=== PATIENT | female | born 1950 | race Caucasian/White ===

== ENCOUNTER → 2017-05-04 | Outpatient (CLI) | payer OTHER, MEDICARE ==
[~2017-05-04] MED LIST: ALL300 PO; CEPH500C2 PO; CHOL100010 PO; CMD5 PO; ENOX100I SQ; FLUO20CA35 PO; HYDR25TA4 PO; IMP/50 PO; METO50TA16 PO; MULT-506 PO; PANT1TAB48 PO; POTA10CA28 PO; PRAV20TA PO; SYN75 PO
== END | disposition home or self-care (01) ==
LOC: C.LABSPEC 17:16 → C.PATHSPEC 17:32
PROVIDERS: ATTEND Urology
DX: N20.0 Calculus of kidney (principal); R31.29 Other microscopic hematuria

== ENCOUNTER → 2017-05-27 | Outpatient (CLI) | payer OTHER, MEDICARE ==
[2017-05-27 10:16] LABS: BLOOD UREA NITROGEN 21 mg/dl (7-18); CREATININE 0.86 mg/dl (0.60-1.20)
== END | disposition home or self-care (01) ==
LOC: C.LAB 08:44
PROVIDERS: ATTEND Otolaryngology
DX: H90.41 Sensorineural hearing loss, unilateral, right ear, with unrestricted hearing on the contralateral side (principal)

== ENCOUNTER → 2017-06-01 | Outpatient (CLI) | payer OTHER, MEDICARE ==
[~2017-06-01] MED LIST changes: +GADAVIST IV PRN
--- NOTE | 2017-06-01 21:38 | DIAGNOSTIC IMAGING REPORT ---
MRI OF THE BRAIN AND IACS WITHOUT AND WITH IV CONTRAST CLINICAL HISTORY: Right-sided hearing loss. HISTORY OF ACOUSTIC NEUROMA. COMPARISON STUDY: 01/20/2015 TECHNIQUE: MRI of the brain was performed from the vertex to the skull base utilizing various T1 and T2 weighted sequences. Following the IV administration of 10 mL of Gadavist contrast, additional enhanced images were obtained. FINDINGS: Sagittal T1, axial diffusion, proton density and T2 weighted axial, coronal FLAIR, and pre and post axial T1-weighted images were acquired. These were supplemented with post gadolinium coronal T1 weighted images. There is a stable tiny focus of enhancement within the right internal auditory canal, likely representing a tiny acoustic neuroma. There is also a stable 4 mm extra-axial focus of enhancement abutting the dura at the level of the right cerebellar pontine angle. This may represent a small meningioma. There are no additional foci of pathologic enhancement. Axial diffusion-weighted images reveal no evidence of acute or subacute infarction. There is no evidence of ventricular dilatation. Proton density T2-weighted and FLAIR images reveal scattered foci of increased T2 signal within the white matter, likely on a small vessel basis. There are no abnormal flow voids. There is a focus of increased T2 signal within the right mastoid, likely inflammatory. IMPRESSION: 1. No significant change in the subtle focus of enhancement within the right internal auditory canal. This is suspicious for a tiny acoustic neuroma 2. Stable extra-axial enhancing dural based lesion at the level of the right cerebellar pontine angle, likely representing a tiny meningioma 3. No evidence of acute or subacute infarction. Electronically signed by: Tyron Kaye M.D. 06/01/2017 9:37 PM Dictated Date/Time: 06/01/2017 9:31 PM
== END | disposition home or self-care (01) ==
LOC: C.MRI 18:47
PROVIDERS: ATTEND Otolaryngology
DX: D33.3 Benign neoplasm of cranial nerves (principal)

== ENCOUNTER 2017-07-22 11:25 | Emergency (ER) | payer OTHER, MEDICARE ==
[~2017-07-22] VITALS: Ht 160 cm; Wt 101.8 kg
[~2017-07-22 11:25] MED LIST changes: -GADAVIST IV PRN; +PANT1TAB3 PO; -PANT1TAB48 PO
[2017-07-22 11:31] VITALS: Ht 160 cm; Wt 101.8 kg
[2017-07-22] MEDS ORDERED: FLUO40CA8 PO (12:03)
[2017-07-22] MEDS ORDERED: LOSA1TAB PO (12:06)
[2017-07-22] MEDS ORDERED: PRAV40TA2 PO (12:06)
[2017-07-22] MEDS ORDERED: ZNTT/150 PO (12:06)
[2017-07-22] MEDS ORDERED: POTA75TA PO (12:12)
[2017-07-22] MEDS ORDERED: VITA400C28 PO (12:12)
[2017-07-22] MEDS ORDERED: ASPI325T39 PO (12:12)
[2017-07-22] MEDS ORDERED: TURM1CAP4 PO (12:12)
--- NOTE | 2017-07-22 12:23 | EMERGENCY ROOM VISIT NOTE ---
History Report prepared by Veena: Oscar Gilbert Under the Supervision of: Dr. Humberto Pickard M.D. First contact with patient: 11:49 Chief Complaint: LEG PAIN,LEG INJURY Stated Complaint: PAIN IN RIGHT LEG History of Present Illness The patient is a 67 year old female who presents to the Emergency Room with complaints of constant bilateral leg pain beginning two days ago. She currently rates her discomfort a 3/10. The patient states her pain is currently behind her right knee and is no longer behind her left knee. She reports she has a history of DVTs and thinks she may have one. The patient notes she has on Coumadin three years ago. She states she has a history of right hip surgery and follows up with [facility]. Source of History: patient Onset: 2 days ago Position: leg (bilateral) Symptom Intensity: 3/10 Timing: constant Note: Denies: pain behind the left knee Review of Systems See HPI for pertinent positives & negatives. A total of 10 systems reviewed and were otherwise negative. Past Medical & Surgical Medical Problems: (1) Heart disease (2) HTN (hypertension) (3) Kidney stone (4) Stomach problems (5) Urinary problem Family History Cancer Diabetes mellitus Heart disease Hypertension Kidney disease Kidney stones Lung disease Social History Smoking Status: Never Smoker Alcohol Use: none Housing Status: lives with family Occupation Status: employed Current/Historical Medications Scheduled Allopurinol (Zyloprim *), 300 MG PO DAILY Aspirin (Aspirin Ec), 325 MG PO QAM Fluoxetine (Prozac), 40 MG PO HS Hydrochlorothiazide (Hctz), 25 MG PO DAILY Imipramine (Tofranil), 50 MG PO BID Levothyroxine Sodium (Levothyroxine Sodium), 75 MCG PO DAILY Losartan Potassium (Cozaar), 12.5 MG PO QAM Multivitamin (Multivitamin), 1 TAB PO DAILY Potassium (Potassium), Unknown Dose PO BID Pravastatin Sodium (Pravastatin Sodium), 1 TAB PO DAILY Ranitidine (Zantac), 1 TAB PO BID Turmeric (Curcuma Longa) (Turmeric), 1 CAP PO BID Vitamin E (Alph-E), 1 CAP PO BID Allergies Coded Allergies: Salicylates (Verified Allergy, Unknown, TAKES BABY ASA AT HOME, 07/22/17) Dipyridamole (Verified Adverse Reaction, Intermediate, MIGRAINES- TOLERATES ASPIRIN, 07/22/17) Thiopental (Verified Adverse Reaction, Intermediate, SEVERE NAUSEA/ VOMITING, 07/22/17) Metronidazole (Verified Adverse Reaction, Mild, NAUSEA, 07/22/17) Aspirin (Verified Adverse Reaction, Unknown, MIGRAINES, 07/22/17) Morphine (Verified Adverse Reaction, Unknown, NAUSEA/VOMITING PER PREOP H& P, 07/22/17) Physical Exam Vital Signs Date Time Temp Pulse Resp B/P (MAP) Pulse Ox O2 Delivery O2 Flow Rate FiO2 07/22/17 16:08 99 183/98 95 Room Air 07/22/17 15:33 86 154/88 100 Nebulizer 7.0 07/22/17 14:46 93 18 96 Room Air 07/22/17 14:36 86 07/22/17 14:35 86 20 150/91 100 Room Air 07/22/17 14:33 96 Room Air 07/22/17 13:03 36.5 84 18 152/91 96 Room Air 07/22/17 11:31 36.7 100 18 168/92 95 Room Air Physical Exam GENERAL: Patient is a healthy-appearing well-nourished 67 year old female. HEAD: Normocephalic atraumatic EYES: Ocular movements intact pupils equal and react to light OROPHARYNX mucous membranes are moist no exudates present no erythema or edema present NECK: Supple no nuchal rigidity CHEST: Good equal expansion LUNGS: Clear and equal to auscultation CARDIAC: Normal S1 and S2 ABDOMEN: Soft nontender no guarding BACK: No CVA tenderness EXTREMITIES: Normal muscle strength in all groups no clubbing cyanosis or edema. Pain posterior to the right knee and left knee. Good ROM of knee, ankle, and hip. Neurovascularly intact. NEURO: Patient is following commands and answering questions appropriately. Alert and oriented x3 Cranial Nerves 2-12 grossly intact Medical Decision & Procedures ER Provider Diagnostic Interpretation: Radiology results as stated below per my review and radiologist interpretation: BILATERAL LOWER EXTREMITY VENOUS DOPPLER HISTORY: Pt c/o b/l leg pain COMPARISON STUDY: None. FINDINGS: There is normal compressibility, flow, and augmentation within the bilateral lower extremity deep venous systems. A 1 cm cyst within the right popliteal fossa. IMPRESSION: No DVT within the right or left lower extremity. Electronically signed by: Scooby Weaver M.D. 07/22/2017 1:48 PM Dictated Date/Time: 07/22/2017 1:48 PM CHEST ONE VIEW PORTABLE HISTORY: Short of breath. COMPARISON: Chest 12/14/2013. FINDINGS: The lungs are clear. Cardiac silhouette is normal in size. No pleural effusions. No pneumothorax. IMPRESSION: No acute process. Electronically signed by: Scooby Weaver M.D. 07/22/2017 3:17 PM Dictated Date/Time: 07/22/2017 3:16 PM CHEST CTA for PULMONARY ARTERIES CT DOSE: 664.02 mGy.cm HISTORY: Short of breath. Cough. TECHNIQUE: Multiaxial CT images of the chest were performed following the intravenous administration of contrast to evaluate the pulmonary arteries. Maximal intensity projection images were also obtained. A dose lowering technique was utilized adhering to the principles of ALARA. COMPARISON STUDY: Chest CTA 12/14/2013. 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 The aorta is normal in caliber with no evidence for dissection. The heart is borderline enlarged. Respiratory motion artifact results in nondiagnostic evaluation of the majority of the bilateral lower lobe and right middle lobe segmental and subsegmental pulmonary arteries. The remaining pulmonary arteries are patent with no evidence for pulmonary embolus. No pleural or pericardial effusions. The visualized liver, spleen, and adrenal glands are unremarkable. No mediastinal or hilar lymphadenopathy. No fractures within the visualized osseous structures. No pneumothorax. The central airways are patent. Bibasilar linear densities consistent with subsegmental atelectasis. IMPRESSION: 1. No evidence for pulmonary embolus with limitations as described above. 2. Bibasilar linear densities consistent with subsegmental atelectasis. Otherwise, no focal lung consolidations to suggest pneumonia. Electronically signed by: Scooby Weaver M.D. 07/22/2017 4:05 PM Dictated Date/Time: 07/22/2017 3:58 PM Laboratory Results 07/22/17 14:30 Red Blood Count 4.40, Mean Corpuscular Volume 95.0, Mean Corpuscular Hemoglobin 32.3, Mean Corpuscular Hemoglobin Concent 34.0, Mean Platelet Volume 10.4, Neutrophils (%) (Auto) 63.7, Lymphocytes (%) (Auto) 26.8, Monocytes (%) (Auto) 6.8, Eosinophils (%) (Auto) 2.1, Basophils (%) (Auto) 0.3, Neutrophils # (Auto) 5.59, Lymphocytes # (Auto) 2.35, Monocytes # (Auto) 0.60, Eosinophils # (Auto) 0.18, Basophils # (Auto) 0.03 07/22/17 14:30 Test 07/22/17 14:30 07/22/17 14:34 07/22/17 14:35 07/22/17 14:38 White Blood Count 8.78 K/uL (4.8-10.8) Red Blood Count 4.40 M/uL (4.2-5.4) Hemoglobin 14.2 g/dL (12.0-16.0) Hematocrit 41.8 % (37-47) Mean Corpuscular Volume 95.0 fL (80-100) Mean Corpuscular Hemoglobin 32.3 pg (25-34) Mean Corpuscular Hemoglobin Concent 34.0 g/dl (32-36) Platelet Count 217 K/uL (130-400) Mean Platelet Volume 10.4 fL (7.4-10.4) Neutrophils (%) (Auto) 63.7 % Lymphocytes (%) (Auto) 26.8 % Monocytes (%) (Auto) 6.8 % Eosinophils (%) (Auto) 2.1 % Basophils (%) (Auto) 0.3 % Neutrophils # (Auto) 5.59 K/uL (1.4-6.5) Lymphocytes # (Auto) 2.35 K/uL (1.2-3.4) Monocytes # (Auto) 0.60 K/uL (0.11-0.59) Eosinophils # (Auto) 0.18 K/uL (0-0.5) Basophils # (Auto) 0.03 K/uL (0-0.2) RDW Standard Deviation 48.4 fL (36.4-46.3) RDW Coefficient of Variation 14.0 % (11.5-14.5) Immature Granulocyte % (Auto) 0.3 % Immature Granulocyte # (Auto) 0.03 K/uL (0.00-0.02) Est Creatinine Clear Calc Drug Dose 71.1 ml/min Estimated GFR () 81.0 Estimated GFR (Non- 69.9 BUN/Creatinine Ratio 26.3 (10-20) Calcium Level 9.0 mg/dl (8.5-10.1) Total Bilirubin 0.4 mg/dl (0.2-1) Aspartate Amino Transf (AST/SGOT) 16 U/L (15-37) Alanine Aminotransferase (ALT/SGPT) 27 U/L (12-78) Alkaline Phosphatase 87 U/L (45-117) Total Creatine Kinase 138 U/L (26-192) Creatine Kinase MB 2.0 ng/ml (0.5-3.6) Creatine Kinase MB Ratio 1.4 (0-3.0) Troponin I < 0.015 ng/ml (0-0.045) Pro-B-Type Natriuretic Peptide 19 pg/ml (0-900) Total Protein 7.6 gm/dl (6.4-8.2) Albumin 3.6 gm/dl (3.4-5.0) Globulin 4.0 gm/dl (2.5-4.0) Albumin/Globulin Ratio 0.9 (0.9-2) Bedside D-Dimer > 450 ng/mlFEU (0-450) Influenza Type A (RT-PCR) Neg for Influ A (NEG) Influenza Type A Antigen Neg for Influ A (NEG) Influenza Type B Antigen Neg for Influ B (NEG) Influenza Type B (RT-PCR) Neg for Influ B (NEG) Bedside Hemoglobin 14.3 g/dl (12.0-16.0) Bedside Hematocrit 42 % (37-47) Bedside Sodium 140 mEq/L (135-144) Bedside Potassium 3.3 mEq/L (3.3-5.0) Bedside Chloride 99 mEq/L (101-112) Bedside Total CO2 30 mEq/l (24-31) Anion Gap 16.0 mmol/L (16-25) Bedside Blood Urea Nitrogen 24 mg/dl (7-18) Bedside Creatinine 0.7 mg/dl (0.6-1.3) Bedside Glucose (other) 98 mg/dl (70-99) Bedside Ionized Calcium (Levi) 1.16 mmol/l (1.12-1.32) Labs reviewed by ED physician. Medications Administered Medications (Trade) Dose Ordered Sig/Martina Route Start Time Stop Time Status Last Admin Dose Admin Albuterol/ Ipratropium (Duoneb) 12 ml ONE ONCE INH 07/22/17 14:15 07/22/17 14:16 DC 07/22/17 14:45 12 ML ECG Indication: chest pain Rate (beats per minute): 84 Rhythm: sinus rhythm Findings: 1st degree AV block, no acute ischemic change, no ectopy, other (Old inferior infarct) ED Course 1149: Past medical records reviewed. The patient was evaluated in room B11B. A complete history and physical examination was performed. 1408: I reevaluated the patient and updated her of her current exam findings. She now complains of chest pain and shortness of breath. 1415: Ordered Duoneb 12ml INH 1612: Upon reexamination the patient is resting and feeling better. I discussed results and treatment plan with the patient. She verbalizes agreement and understanding. The patient is ready for discharge. Medical Decision Differential diagnosis: Etiologies such as DVT, musculoskeletal, infection, joint effusion, trauma, lymphedema, idiopathic, CHF, as well as others were entertained. This is a 67-year-old female who presents emergency department complaining of right leg pain. The patient is concerned about a DVT. For this reason she was sent for an ultrasound bilaterally of the legs. This did not show any evidence of a DVT. As I was talking again to the patient she began insisting that she was also complaining of chest pain and shortness of breath and told me that she told me this on my physical exam earlier. I will note that described did not note any of these complaints. Nursing notes also confirm this. Based on these new complaints an EKG was obtained, the patient was found to have an elevation in her d-dimer therefore she was sent for CAT scan of the chest. This did not show any evidence of a PE. Patient was given an hour-long breathing treatment in the emergency Department with improvement in her symptoms. Based on these findings I felt that the patient can be safely discharged home for follow-up with her primary care physician and orthopedics. Patient was in agreement with the treatment plan. Medication Reconcilliation Current Medication List: was personally reviewed by me Blood Pressure Screening Patient's blood pressure: Elevated blood pressure Blood pressure disposition: Elevated BP felt to be situational Impression Primary Impression: Monet's cyst Scribe Attestation The scribe's documentation has been prepared under my direction and personally reviewed by me in its entirety. I confirm that the note above accurately reflects all work, treatment, procedures, and medical decision making performed by me. Departure Information Dispostion Home / Self-Care Referrals Neha Keith M.D. (PCP) Forms HOME CARE DOCUMENTATION FORM, IMPORTANT VISIT INFORMATION, School Instructions, Work Instructions Patient Instructions Cyst Monet Popliteal, My [facility] Additional Instructions Follow up with Dr Gonzalez's office for continued knee pain You have been examined and treated today on an emergency basis only. This is not a substitute for, or an effort to provide, complete comprehensive medical care. It is impossible to recognize and treat all injuries or illnesses in a single emergency department visit. It is therefore important that you follow up closely with Dr Keith. Call as soon as possible for an appointment. Thank you for your time and consideration. I look forward to speaking with you again soon. Please don't hesitate to call us if you have any questions. Problem Qualifiers Primary Impression: Monet's cyst Laterality: right Qualified Codes: M71.21 - Synovial cyst of popliteal space [Chiki], right knee
[2017-07-22 13:03] VITALS: TEMP 36.5
--- NOTE | 2017-07-22 13:49 | DIAGNOSTIC IMAGING REPORT ---
BILATERAL LOWER EXTREMITY VENOUS DOPPLER HISTORY: Pt c/o b/l leg pain COMPARISON STUDY: None. FINDINGS: There is normal compressibility, flow, and augmentation within the bilateral lower extremity deep venous systems. A 1 cm cyst within the right popliteal fossa. IMPRESSION: No DVT within the right or left lower extremity. Electronically signed by: Scooby Weaver M.D. 07/22/2017 1:48 PM Dictated Date/Time: 07/22/2017 1:48 PM
[2017-07-22] MEDS ORDERED: ALBUT/IPRATROP 3MG/0.5MG NEB 3 ML VIAL INH ONE (14:15)
[2017-07-22 14:33] VITALS: O2SAT 96
[2017-07-22 14:46] VITALS: PULSE 93; O2SAT 96
[2017-07-22 14:51] LABS: BASO % 0.3 %; BASO ABS # 0.03 K/uL (0-0.2); COMPLETE YES; EOS % 2.1 %; HEMATOCRIT 41.8 % (37-47); IG% 0.3 %; LYMPH % 26.8 %; LYMPH ABS # 2.35 K/uL (1.2-3.4); MEAN CORPUSCULAR HEMOGLOBIN 32.3 pg (25-34); MEAN PLATELET VOLUME 10.4 fL (7.4-10.4); MONO % 6.8 %; NEUT % 63.7 %; PLATELET COUNT 217 K/uL (130-400); WHITE BLOOD COUNT 8.78 K/uL (4.8-10.8)
[2017-07-22 14:52] LABS: ISTAT CREATININE 0.7 mg/dl (0.6-1.3); ISTAT HEMOGLOBIN 14.3 g/dl (12.0-16.0); ISTAT IONIZED CALCIUM 1.16 mmol/l (1.12-1.32)
[2017-07-22] MEDS ORDERED: OPTIRAY 320 IV PRN (15:00)
[2017-07-22 15:16] LABS: ALT/SGPT 27 U/L (12-78); BLOOD UREA NITROGEN 22 mg/dl (7-18); BUN/CREATININE RATIO 26.3 (10-20); CARBON DIOXIDE 30 mmol/L (21-32); CHLORIDE 101 mmol/L (98-107); CREATININE 0.85 mg/dl (0.60-1.20); GLUCOSE 91 mg/dl (70-99); POTASSIUM 3.2 mmol/L (3.5-5.1); SODIUM 137 mmol/L (136-145)
--- NOTE | 2017-07-22 15:18 | DIAGNOSTIC IMAGING REPORT ---
CHEST ONE VIEW PORTABLE HISTORY: Short of breath. COMPARISON: Chest 12/14/2013. FINDINGS: The lungs are clear. Cardiac silhouette is normal in size. No pleural effusions. No pneumothorax. IMPRESSION: No acute process. Electronically signed by: Scooby Weaver M.D. 07/22/2017 3:17 PM Dictated Date/Time: 07/22/2017 3:16 PM
[2017-07-22 15:21] LABS: ALB/GLOB RATIO 0.9 (0.9-2); ALKALINE PHOSPHATASE 87 U/L (45-117); AST/SGOT 16 U/L (15-37); CKMB/CK RATIO 1.4 (0-3.0)
[2017-07-22 15:47] LABS: INFLUENZA A PCR Neg for Influ A (NEG); INFLUENZA B PCR Neg for Influ B (NEG)
--- NOTE | 2017-07-22 16:07 | DIAGNOSTIC IMAGING REPORT ---
CHEST CTA for PULMONARY ARTERIES CT DOSE: 664.02 mGy.cm HISTORY: Short of breath. Cough. TECHNIQUE: Multiaxial CT images of the chest were performed following the intravenous administration of contrast to evaluate the pulmonary arteries. Maximal intensity projection images were also obtained. A dose lowering technique was utilized adhering to the principles of ALARA. COMPARISON STUDY: Chest CTA 12/14/2013. 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 The aorta is normal in caliber with no evidence for dissection. The heart is borderline enlarged. Respiratory motion artifact results in nondiagnostic evaluation of the majority of the bilateral lower lobe and right middle lobe segmental and subsegmental pulmonary arteries. The remaining pulmonary arteries are patent with no evidence for pulmonary embolus. No pleural or pericardial effusions. The visualized liver, spleen, and adrenal glands are unremarkable. No mediastinal or hilar lymphadenopathy. No fractures within the visualized osseous structures. No pneumothorax. The central airways are patent. Bibasilar linear densities consistent with subsegmental atelectasis. IMPRESSION: 1. No evidence for pulmonary embolus with limitations as described above. 2. Bibasilar linear densities consistent with subsegmental atelectasis. Otherwise, no focal lung consolidations to suggest pneumonia. Electronically signed by: Scooby Weaver M.D. 07/22/2017 4:05 PM Dictated Date/Time: 07/22/2017 3:58 PM
[2017-07-22 16:08] VITALS: BP 183/98; PULSE 99; O2SAT 95
== END 2017-07-22 16:37 | disposition home or self-care (01) ==
LOC: C.EDB 11:26
DX: M71.21 Synovial cyst of popliteal space [Baker], right knee (principal); I10 Essential (primary) hypertension; Z87.442 Personal history of urinary calculi; Z86.718 Personal history of other venous thrombosis and embolism; Z98.890 Other specified postprocedural states; Z83.3 Family history of diabetes mellitus; Z82.49 Family history of ischemic heart disease and other diseases of the circulatory system; Z84.1 Family history of disorders of kidney and ureter; Z79.82 Long term (current) use of aspirin; Z79.899 Other long term (current) drug therapy